=== PATIENT | male | born 1965 | race Caucasian/White ===

== ENCOUNTER 2017-03-23 10:01 | Emergency (ER) | payer SELFPAY ==
[~2017-03-23] VITALS: Ht 185.4 cm; Wt 94.3 kg
[~2017-03-23 10:01] MED LIST: CYCL10TA9 PO; HYDR-1231 PO; LISI1TAB PO; PRD20T PO; SIMV20TA3 PO; TRM50T PO
--- NOTE | 2017-03-23 11:14 | ED Lower Extremity ---
General Chief Complaint: Lower Extremity Stated Complaint: R LEG PAIN Nursing Triage Note: ARRIVED VIA AMB TO ROOM 05. COMPLAINS OF PAIN RIGHT UPPER THIGH X1 WEEK THAT IS GETTING WORSE. DENIES INJURY. STATES HE WAS SEEN IN [place] A COUPLE OF DAYS AGO. THEY MORENO BLOOD AND TOLD HIM IT WAS A PULLED MUSCLE. Nursing Sepsis Screen: No Definite Risk Source: patient Exam Limitations: no limitations History of Present Illness Time seen by provider: 11:14 Initial Comments 51 yo male patient presents to the ED with w/o 1 wk onset of rt upper thigh pain. Patient states he was seen at [place] ED a couple of days ago with labs drawn. He states he was told all labs were normal and that he had pulled a muscle. Reports being given a prescription for a muscle relaxant, but did not fill the prescriptions. States "It wouldn't have helped." Patient reports yesterday he noticed his rt foot was a different color than the left. States it looked much whiter than the left. Patient does do heavy lifting at his job. Patient denies back pain, abdominal pain, dysuria, frequency, hematuria, bulging in the groin, scrotal swelling. Location Injury Occurred: denies known injury Onset: last week Pain/Injury Location: right thigh Method of Injury: unknown (denies known injury) Modifying Factors: Worse With Movement (pain is worse with ambulation.) Allergies and Home Medications Allergies Coded Allergies: codeine (Verified Allergy, Intermediate, RASH, 01/09/14) Home Medications Cyclobenzaprine Hcl 10 Mg Tablet, 1 EACH PO Q8H PRN for SPASMS, #10 Ref 0 Prescribed by: ROSA LOYOLA on 01/09/14 1658 Hctz/Lisinopril 1 Each Tablet, 1 EACH PO DAILY, (Reported) Hydrocodone/Acetaminophen 1 Each Tablet, 1 EACH PO Q6H PRN for PAIN, #10 Ref 0 Prescribed by: ROSA LOYOLA on 03/23/17 1348 Prednisone 20 Mg Tab, 40 MG PO DAILY, #10 Ref 0 Prescribed by: ROSA LOYOLA on 03/23/17 1339 Simvastatin 20 Mg Tablet, 20 MG PO DAILY, (Reported) Tramadol Hcl 50 Mg Tab, 50 MG PO Q6H, (Reported) Constitutional: No chills, No fever, No malaise Respiratory: No cough, No dyspnea on exertion, No orthopnea, No short of breath Cardiovascular: No chest pain, No edema, No palpitations, No syncope Gastrointestinal: no symptoms reported Genitourinary: no symptoms reported Musculoskeletal: see HPI, No back pain, No joint pain, No joint swelling, muscle pain, muscle stiffness, No muscle cramps, No neck pain Skin: No change in color, No lesions, No pruritus, No rash Psychiatric/Neurological: Denies Numbness, Denies Paresthesia, Denies Tingling , Denies Weakness All Other Systems Reviewed Negative Unless Noted: Yes (Negative excepted noted.) Past Ljwyent-Phkhit-Yeoqcl Hx Patient Social History Alcohol Use: Rarely Uses Recreational Drug Use: No Smoking Status: Current Everyday Smoker Recent Foreign Travel: No Contact w/Someone Who Travel: No Recent Infectious Disease Expo: No Recent Hopitalizations: Yes Surgeries HX Surgeries: Yes (HERNIA REPAIR) Surgeries: Orthopedic Respiratory Hx Respiratory Disorders: No Cardiovascular Hx Cardiac Disorders: Yes Cardiac Disorders: Hypertension Neurological Hx Neurological Disorders: No Genitourinary Hx Genitourinary Disorders: No Gastrointestinal Hx Gastrointestinal Disorders: No Musculoskeletal Hx Musculoskeletal Disorders: No Endocrine Hx Endocrine Disorders: No HEENT HX ENT Disorders: No Cancer Hx Cancer: No Psychosocial Hx Psychiatric Problems: No Integumentary HX Skin/Integumentary Disorder: No Blood Transfusions Hx Blood Disorders: No Reviewed Nursing Assessment Reviewed/Agree w Nursing PMH: Yes Family Medical History Significant Family History: No Pertinent Family Hx Physical Exam Vital Signs Vital Sign - Last 12Hours 03/23/17 10:39 Temp 98.0 Pulse 65 Resp 16 B/P (MAP) 142/84 Pulse Ox 97 Capillary Refill : Less Than 3 Seconds General Appearance: WD/WN, no apparent distress Cardiovascular: normal peripheral pulses, regular rate, rhythm, no edema, no murmur Respiratory: lungs clear, normal breath sounds, no respiratory distress Gastrointestinal: normal bowel sounds, non tender, soft, no organomegaly Back: normal inspection, no CVA tenderness, no vertebral tenderness Hips: bilateral hip non-tender, bilateral hip normal inspection, bilateral hip normal range of motion, bilateral hip no evidence of injury Legs: bilateral leg non-tender (unable to reproduce right thigh tenderness), left leg normal inspection, bilateral leg normal range of motion, bilateral leg no evidence of injury, right leg other (anterior thigh muscle spasm noted.) Knees: bilateral knee non-tender, bilateral knee normal inspection, bilateral knee normal range of motion, bilateral knee no evidence of injury Ankles: bilateral ankle non-tender, bilateral ankle normal inspection, bilateral ankle normal range of motion, bilateral ankle no evidence of injury Feet: bilateral foot non-tender, bilateral foot normal inspection, bilateral foot normal range of motion, bilateral foot no evidence of injury Neurologic/Tendon: normal sensation, normal motor functions, normal tendon functions, responds to pain, no evidence tendon injury Neurologic/Psychiatric: no motor/sensory deficits, alert, normal mood/affect, oriented x 3 Skin: normal color, warm/dry, No cyanosis, No cool, No ecchymosis, No mottled, No pallor, No rash Progress/Results/Core Measures Results/Orders My Orders Orders - ROSA LOYOLA Us Right Low Ext [id number] (03/23/17 11:39) Ketorolac Injection (Toradol Injection) (03/23/17 11:39) Vital Signs/I&O Vital Sign - Last 12Hours 03/23/17 03/23/17 10:39 13:51 Temp 98.0 98.0 Pulse 65 65 Resp 16 16 B/P (MAP) 142/84 Pulse Ox 97 97 Blood Pressure Mean: 103 Diagnostic Imaging Diagonstic Imaging: Ultrasound Plain Films/CT/US/NM/MRI: leg Comments FINDINGS: No irregular plaque formation is identified. Peak systolic velocities are grossly normal. There is normal triphasic flow throughout. There is no occlusion or stenosis. IMPRESSION: Negative right lower extremity arterial Doppler. Dictated on workstation # [id number] Reviewed: Reviewed by Me (radiology report reviewed by me. ) Departure Communication Progress Notes Patient seen and evaluated. Arterial ultrasound is negative. Diagnostic findings were discussed with the patient. Plan for discharge to home. Patient given a prescription for tramadol and prednisone. 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 Patient is to follow-up with his primary care physician for recheck. Impression Impression: Primary Impression: Muscle strain of right thigh Qualified Codes: S76.911A - Strain of unspecified muscles, fascia and tendons at thigh level, right thigh, initial encounter Disposition: HOME, SELF-CARE Condition: Improved Departure-Patient Inst. Decision time for Depature: 13:27 Referrals: JIMI ROGER DO (PCP/Family) Primary Care Physician Patient Instructions: Lower Extremity Muscle Strain Add. Discharge Instructions: All discharge instructions reviewed with patient and/or family. Voiced understanding. Medications as instructed. Tylenol Extra Strength over-the- counter as directed for pain. Ibuprofen 800 mg by mouth every 8 hours as needed for pain. Elevate the right leg on pillows. Ice pack or heating pads as needed for pain. Follow-up with your family practitioner for recheck an outpatient. Return to the emergency department for worsened symptoms or any other concerns. Scripts Hydrocodone/Acetaminophen (Hydrocodon -Acetaminophen 5-325) 1 Each Tablet 1 EACH PO Q6H Y for PAIN, #10 TAB 0 Refills Prov: ROSA LOYOLA 03/23/17 Prednisone (Prednisone) 20 Mg Tab 40 MG PO DAILY, #10 TAB 0 Refills Prov: ROSA LOYOLA 03/23/17 ROSA LOYOLA Mar 23, 2017 11:14
[2017-03-23] MEDS ORDERED: KETOROLAC 60 MG/2 ML VIAL IM STA (11:39)
--- NOTE | 2017-03-23 12:42 | Diagnostic Imaging Report ---
INDICATION: Right leg pain COMPARISON: None FINDINGS: No irregular plaque formation is identified. Peak systolic velocities are grossly normal. There is normal triphasic flow throughout. There is no occlusion or stenosis. IMPRESSION: Negative right lower extremity arterial Doppler. Dictated by: Dictated on workstation # [id number]
[2017-03-23] MEDS ORDERED: PRD20T PO (13:39)
[2017-03-23] MEDS ORDERED: TRAM50TA2 PO (13:39)
[2017-03-23] MEDS ORDERED: HYDR-3812 PO (13:48)
[2017-03-23 13:51] VITALS: BP 142/84
== END 2017-03-23 13:51 | disposition home or self-care (01) ==
LOC: EDUNIT# 10:01 → ER 10:03
DX: S76.911A Strain of unspecified muscles, fascia and tendons at thigh level, right thigh, initial encounter (principal); I10 Essential (primary) hypertension; F17.200 Nicotine dependence, unspecified, uncomplicated; Z87.19 Personal history of other diseases of the digestive system; X50.0XXA Overexertion from strenuous movement or load, initial encounter; Y92.59 Other trade areas as the place of occurrence of the external cause
CPT/HCPCS: 93926; 96372; 99284